=== PATIENT | male | born 1975 | race Two or more races ===

== ENCOUNTER 2020-07-05 13:23 | Emergency (ER) | payer OTHER ==
[~2020-07-05] VITALS: Ht 170.2 cm; Wt 72.6 kg
== END 2020-07-05 18:55 | disposition home or self-care (01) ==
LOC: ER 13:23
DX: R50.9 Fever, unspecified (principal); E86.0 Dehydration; R10.9 Unspecified abdominal pain; Z20.822 Contact with and (suspected) exposure to COVID-19